=== PATIENT | male | born 1995 | race Two or more races ===

== ENCOUNTER 2025-07-30 19:29 | Emergency (ER) | payer SELFPAY ==
[~2025-07-30] VITALS: Ht 177.8 cm; Wt 99.8 kg
[2025-07-30 20:29] VITALS: BP 121/72; TEMP 98
[2025-07-30] MEDS ORDERED: LIDO30AD10 TP (21:58)
[2025-07-30] MEDS ORDERED: IBUP-1490 PO (21:58)
[2025-07-30] MEDS ORDERED: METH-649 PO (21:58)
[2025-07-30 22:13] VITALS: O2SAT 98
== END 2025-07-30 22:13 | disposition home or self-care (01) ==
LOC: ER 19:35
DX: M54.2 Cervicalgia (principal); M79.642 Pain in left hand; R07.81 Pleurodynia
CPT/HCPCS: 71100-TC; 72040-TC; 73130-TC